=== PATIENT | female | born 1980 | race Caucasian/White ===

== ENCOUNTER 2017-05-05 17:36 | Emergency (ER) | payer MEDICAID ==
[2017-05-05 21:08] VITALS: BP 129/70
== END 2017-05-05 21:08 | disposition home or self-care (01) ==
LOC: ED 17:36
DX: S50.01XA Contusion of right elbow, initial encounter (principal); W01.0XXA Fall on same level from slipping, tripping and stumbling without subsequent striking against object, initial encounter; Y93.89 Activity, other specified; Y92.89 Other specified places as the place of occurrence of the external cause; Y99.8 Other external cause status
CPT/HCPCS: J7030

== ENCOUNTER 2017-07-09 16:48 | Emergency (ER) | payer MEDICAID ==
[~2017-07-09] VITALS: Ht 157.5 cm; Wt 57.6 kg
[2017-07-09 17:02] VITALS: Ht 157.5 cm; Wt 57.6 kg
[2017-07-09 18:07] LABS: BASOPHIL % 0.8 % (0-2); PLATELET COUNT 275 x10^3mcL (130-400)
[2017-07-09 18:10] LABS: RED CELL DISTRIBUTION WIDTH 16.6 % (11.5-14.5)
[2017-07-09 18:55] VITALS: BP 123/78
== END 2017-07-09 18:55 | disposition home or self-care (01) ==
LOC: ED 16:48
PROVIDERS: Emergency Medicine
DX: R10.12 Left upper quadrant pain (principal); R51 Headache; R11.0 Nausea
CPT/HCPCS: 36415; J0780; J1885